=== PATIENT | female | born 1975 | race Caucasian/White ===

== ENCOUNTER 2018-04-05 02:17 | Emergency (ER) | payer MEDICAID, OTHER ==
[~2018-04-05] VITALS: Ht 177.8 cm; Wt 50.0 kg
[~2018-04-05 02:17] MED LIST: Z.0.NO CURRENT MEDS
[2018-04-05 02:27] VITALS: BP 137/84; PULSE 100; RESP 24; TEMP 98.2; O2SAT 100
[2018-04-05] MEDS ORDERED: VIST25CA PO (02:32)
[2018-04-05] MEDS ORDERED: PROZ40CA PO (02:32)
[2018-04-05 02:38] VITALS: BP 144/74; PULSE 101; RESP 26; O2SAT 100
--- NOTE | 2018-04-05 02:42 | PD ---
HPI Chief Complaint: GI Complaint Time Seen by Provider: 02:42 Travel History International Travel<30 days: No Contact w/Intl Traveler<30days: No Traveled to known affect area: No History of Present Illness HPI 42-year-old female with polysubstance abuse history presents to the emergency department by EMS transport for complaint of withdrawal symptoms. Patient recently was released from a one-week program at [facility] in [place] for methadone detox. Patient was released at 4 PM yesterday Monday. Patient states that she feels anxious with spasms in her hands and feet and presents with tachypnea and hyperventilation. Patient states that she decided she needed to come to the hospital or go to [facility]. Patient decided to come to the hospital. Patient does not voice any other concerns or complaints at this time and she is focused on getting medication for her symptoms. Patient denies other concerns or complaints at this time. Last time patient was seen in this system was for similar complaint May 2012. Denies homicidal or suicidal ideation PFSH Past Medical History Narrative Medical Depression tobacco use alcohol use drug abuse; nursing notes reviewed Depression: Yes ?: Not Past Surgical History Section: Yes (x2) Social History Alcohol Use: Yes (etoh abuse) Tobacco Use: Yes Substance Use: Yes (hx of drug abuse) Allergies-Medications (Allergen,Severity, Reaction): Coded Allergies: codeine (Unverified Allergy, Severe, 04/05/18) gabapentin (Verified Adverse Reaction, Unknown, 04/05/18) Reported Meds & Prescriptions Reported Meds & Active Scripts Active Zofran Odt (Ondansetron Odt) 4 Mg Tab 4 Mg SL Q6HR PRN Phenergan (Promethazine HCl) 25 Mg Tablet 25 Mg PO Q6H PRN Reported Vistaril (Hydroxyzine Pamoate) 25 Mg Cap 25 Mg PO Q6H PRN Prozac (Fluoxetine HCl) 40 Mg Cap 40 Mg PO DAILY Review of Systems Except as stated in HPI: all other systems reviewed are Neg General / Constitutional: No: Fever, Chills HENT: No: Congestion Cardiovascular: No: Chest Pain or Discomfort Respiratory: No: Shortness of Breath Gastrointestinal: Positive: Nausea, No: Vomiting, Abdominal Pain Genitourinary: No: Flank Pain Musculoskeletal: Positive: Cramping, No: Myalgias, Arthralgias Skin: No Rash (Bilateral hands and feet) Neurologic: No: Weakness, Dizziness, Syncope, Focal Abnormalities, Coordination Problem Psychiatric: Positive: Anxiety, No: Suicidal Ideations Endocrine: No: Heat Intolerance Hematologic/Lymphatic: No: Easy Bruising Physical Exam Narrative GENERAL: Well-developed well-nourished female crying and shaking and stating she needs something for her vomiting SKIN: Warm and dry. HEAD: Normocephalic. EYES: No scleral icterus. No injection or drainage. NECK: Supple, trachea midline. No JVD or lymphadenopathy. CARDIOVASCULAR: Increased regular rate and rhythm without murmurs, gallops, or rubs. RESPIRATORY: Breath sounds equal bilaterally. No accessory muscle use. GASTROINTESTINAL: Abdomen soft, non-tender, nondistended. MUSCULOSKELETAL: No cyanosis, or edema. BACK: Nontender without obvious deformity. No CVA tenderness. Data Data Last Documented VS Vital Signs Date Time Temp Pulse Resp B/P (MAP) Pulse Ox O2 Delivery O2 Flow Rate FiO2 04/05/18 05:01 101 24 141/86 (104) 97 Room Air 04/05/18 02:27 98.2 Orders Orders Complete Blood Count With Diff (04/05/18 02:42) Comprehensive Metabolic Panel (04/05/18 02:42) Thyroid Stimulating Hormone (04/05/18 02:42) Urinalysis - C+S If Indicated (04/05/18 02:42) Electrocardiogram (04/05/18 02:42) Iv Access Insert/Monitor (04/05/18 02:42) Psych Screen (04/05/18 02:42) Blood Glucose (04/05/18 02:42) Drug Screen, Random Urine (04/05/18 02:42) Alcohol (Ethanol) (04/05/18 02:42) Salicylates (Aspirin) (04/05/18 02:42) Tylenol (Acetaminophen) (04/05/18 02:42) Sodium Chlor 0.9% 1000 Ml Inj (Ns 1000 M (04/05/18 02:45) Metoclopramide Inj (Reglan Inj) (04/05/18 02:45) Magnesium (Mg) (04/05/18 02:42) Ed Urine Pregnancytest Poc (04/05/18 02:42) Chest, Single Ap (04/05/18 ) Blood Culture (04/05/18 03:46) Sodium Chlor 0.9% 1000 Ml Inj (Ns 1000 M (04/05/18 04:00) Lactic Acid Sepsis Protocol (04/05/18 03:46) Diphenhydramine Inj (Benadryl Inj) (04/05/18 05:00) Ondansetron Odt (Zofran Odt) (04/05/18 05:45) Lorazepam Inj (Ativan Inj) (04/05/18 05:45) Promethazine Inj (Phenergan Inj) (04/05/18 06:30) Labs Laboratory Tests Test 04/05/18 02:58 04/05/18 04:46 White Blood Count 15.7 TH/MM3 Red Blood Count 4.83 MIL/MM3 Hemoglobin 14.2 GM/DL Hematocrit 39.7 % Mean Corpuscular Volume 82.1 FL Mean Corpuscular Hemoglobin 29.4 PG Mean Corpuscular Hemoglobin Concent 35.8 % Red Cell Distribution Width 13.8 % Platelet Count 240 TH/MM3 Mean Platelet Volume 9.6 FL Neutrophils (%) (Auto) 73.9 % Lymphocytes (%) (Auto) 20.2 % Monocytes (%) (Auto) 5.4 % Eosinophils (%) (Auto) 0.2 % Basophils (%) (Auto) 0.3 % Neutrophils # (Auto) 11.6 TH/MM3 Lymphocytes # (Auto) 3.2 TH/MM3 Monocytes # (Auto) 0.9 TH/MM3 Eosinophils # (Auto) 0.0 TH/MM3 Basophils # (Auto) 0.1 TH/MM3 CBC Comment DIFF FINAL Differential Comment Blood Urea Nitrogen 8 MG/DL Creatinine 0.90 MG/DL Random Glucose 127 MG/DL Total Protein 8.2 GM/DL Albumin 4.4 GM/DL Calcium Level 9.4 MG/DL Magnesium Level 1.9 MG/DL Alkaline Phosphatase 49 U/L Aspartate Amino Transf (AST/SGOT) 13 U/L Alanine Aminotransferase (ALT/SGPT) 17 U/L Total Bilirubin 0.7 MG/DL Sodium Level 139 MEQ/L Potassium Level 3.7 MEQ/L Chloride Level 105 MEQ/L Carbon Dioxide Level 20.1 MEQ/L Anion Gap 14 MEQ/L Estimat Glomerular Filtration Rate 69 ML/MIN Thyroid Stimulating Hormone 3rd Gen 1.850 uIU/ML Salicylates Level 1.9 MG/DL Acetaminophen Level LESS THAN 2.0 MCG/ML Ethyl Alcohol Level LESS THAN 3 MG/DL Urine Color YELLOW Urine Turbidity HAZY Urine pH 8.5 Urine Specific [place] 1.015 Urine Protein NEG mg/dL Urine Glucose (UA) NEG mg/dL Urine Ketones 40 mg/dL Urine Occult Blood NEG Urine Nitrite NEG Urine Bilirubin NEG Urine Urobilinogen LESS THAN 2.0 MG/DL Urine Leukocyte Esterase NEG Urine WBC 7 /hpf Urine Squamous Epithelial Cells <1 /hpf Urine Amorphous Sediment OCC Urine Mucus FEW /lpf Microscopic Urinalysis Comment CULT NOT INDICATED Lactic Acid Level 1.3 mmol/L Urine Opiates Screen NEG Urine Barbiturates Screen NEG Urine Amphetamines Screen NEG Urine Benzodiazepines Screen NEG Urine Cocaine Screen NEG Urine Cannabinoids Screen POS MDM Medical Decision Making Medical Screen Exam Complete: Yes Emergency Medical Condition: Yes Medical Record Reviewed: Yes Interpretation(s) EKG sinus rhythm rate 85 first-degree AV block no acute ST elevation or injury pattern cxr: FINDINGS: A single AP view of the chest demonstrates the lungs to be symmetrically aerated without evidence of mass, infiltrate or effusion. The cardiomediastinal contours are unremarkable. Osseous structures are intact. CONCLUSION: Electronically signed by: Yvan Barnard MD 04/05/2018 4:14 AM EDT lactic acid: 1.3, not elevated CBC & BMP Diagram 04/05/18 02:58 Total Protein 8.2, Albumin 4.4, Calcium Level 9.4, Magnesium Level 1.9, Alkaline Phosphatase 49, Aspartate Amino Transf (AST/SGOT) 13 L, Alanine Aminotransferase (ALT/SGPT) 17, Total Bilirubin 0.7 tsh: 1.850, wnl Urine drug screen is positive for cannabinoids Urinalysis blood cells otherwise culture not indicated Acetaminophen and salicylate levels are not elevated Differential Diagnosis Polysubstance abuse, polysubstance withdrawal, anxiety, electrolyte disturbance , sepsis Narrative Course IV access obtained specimens collected and sent for resulting Patient's total white cell count is elevated at 15,000 patient identified to have bicarb 20.1; patient HR >90 and RR >22; acetaminophen and aspirin levels are not elevated call is less than 3 @ 3:52 AM UA, UDS, CXR, Lactic acid pending; patient ordered additional liter of normal saline At 5:35 AM lab values are resulted and patient is stable for outpatient management she will be referred to [facility] for ongoing inpatient or outpatient detox program At 6:17 AM patient reports she feels medically improved still some mild nausea tolerates Phenergan and responds well to Phenergan requesting an injection of Phenergan prior to being discharged is participating in a rehab program and has paid for the rehab program but would benefit from prescription for Zofran. Denies suicidal or homicidal ideation. Sepsis Criteria SIRS Criteria (2 or more): Heart rate over 90, RR > 20 or PaCO2 < 32, WBC > 53096, < 4000 or > 10% bands Diagnosis Primary Impression: Substance abuse Additional Impression: Vomiting Additional Instructions: Increase fluid hydration Take Phenergan as prescribed as needed for nausea and/or vomiting may take Zofran as needed for breakthrough nausea and/or vomiting Follow-up with your rehab program as planned Return to the emergency department for any concerns or change in condition May go to [facility] for alternative resources for detox and rehab program Med/Other Pt SpecificInfo: Prescription(s) given Scripts Ondansetron Odt (Zofran Odt) 4 Mg Tab 4 MG SL Q6HR Y for Nausea/Vomiting, #5 TAB 0 Refills Prov: Camila Bashir MD 04/05/18 Promethazine (Phenergan) 25 Mg Tablet 25 MG PO Q6H Y for NAUSEA OR VOMITING, #10 TAB 0 Refills Prov: Camila Bashir MD 04/05/18 Disposition: 01 DISCHARGE HOME Condition: Stable Camila Bashir MD Apr 05, 2018 02:42
[2018-04-05] MEDS ORDERED: SODIUM CHLOR 0.9% 1000 ML INJ 1,000 ML IV ONE ×2 (02:45→04:00)
[2018-04-05] MEDS ORDERED: METOCLOPRAMIDE HCL 10 MG/2 ML VIAL IV PUSH ONE (02:45)
[2018-04-05 03:09] LABS: AUTOMATED NEUTROPHIL # 11.6 TH/MM3 (1.8-7.7); BASOPHIL # 0.1 TH/MM3 (0-0.2); BASOPHIL % 0.3 % (0.0-2.0); EOSINOPHIL % 0.2 % (0.0-4.0); HEMATOCRIT 39.7 % (35.0-46.0); HEMOGLOBIN 14.2 GM/DL (11.6-15.3); LYMPH % 20.2 % (9.0-44.0); LYMPHOCYTE # 3.2 TH/MM3 (1.0-4.8); MEAN CELL VOLUME 82.1 FL (80.0-100.0); MEAN CORPUSCULAR HEMOGLOBIN 29.4 PG (27.0-34.0); MEAN CORPUSCULAR HGB CONC 35.8 % (32.0-36.0); MEAN PLATELET VOLUME 9.6 FL (7.0-11.0); MONO % 5.4 % (0.0-8.0); MONOCYTE # 0.9 TH/MM3 (0-0.9); NEUT % 73.9 % (16.0-70.0); PLATELET COUNT 240 TH/MM3 (150-450); RED BLOOD COUNT 4.83 MIL/MM3 (4.00-5.30); RED CELL DISTRIBUTION WIDTH 13.8 % (11.6-17.2); WHITE BLOOD COUNT 15.7 TH/MM3 (4.0-11.0)
[2018-04-05 03:37] LABS: ACETAMINOPHEN LESS THAN 2.0 MCG/ML (10.0-30.0); ALBUMIN 4.4 GM/DL (3.4-5.0); ALKALINE PHOSPHATASE 49 U/L (45-117); ALT (GPT) 17 U/L (10-53); AST (GOT) 13 U/L (15-37); BICARBONATE 20.1 MEQ/L (21.0-32.0); BLOOD UREA NITROGEN 8 MG/DL (7-18); CALCIUM 9.4 MG/DL (8.5-10.1); CHLORIDE 105 MEQ/L (98-107); GLOMERULAR FILTRATION RATE 69 ML/MIN (>89); GLUCOSE,RANDOM 127 MG/DL (74-106); MAGNESIUM 1.9 MG/DL (1.5-2.5); SODIUM (NA) 139 MEQ/L (136-145); TOTAL BILIRUBIN ADULT 0.7 MG/DL (0.2-1.0); TOTAL PROTEIN 8.2 GM/DL (6.4-8.2)
--- NOTE | 2018-04-05 04:15 | RADRPT ---
EXAM DATE: 04/05/2018 4:12 AM EDT AGE/SEX: 42 years / Female INDICATIONS: Short of breath. CLINICAL DATA: This is the patient's initial encounter. Patient reports that signs and symptoms have been present for 1 day and indicates a pain score of 0/10. MEDICAL/SURGICAL HISTORY: None. None. COMPARISON: No prior exams available for comparison. FINDINGS: A single AP view of the chest demonstrates the lungs to be symmetrically aerated without evidence of mass, infiltrate or effusion. The cardiomediastinal contours are unremarkable. Osseous structures a re intact. CONCLUSION: Electronically signed by: Yvan Barnard MD 04/05/2018 4:14 AM EDT
[2018-04-05] MEDS ORDERED: diphenhydrAMINE HCL 50 MG/ML VIAL IV PUSH ONE (05:00)
[2018-04-05 05:01] VITALS: BP 141/86; PULSE 101; RESP 24; O2SAT 97
[2018-04-05 05:25] LABS: AMORPHOUS SEDIMENT, URINE OCC; BILIRUBIN, URINE NEG (NEG); BLOOD, URINE NEG (NEG); GLUCOSE,URINE NEG (NEG); KETONE, URINE 40 mg/dL (NEG); MUCUS URINE FEW /lpf (OCC); NITRITE,URINE NEG (NEG); PH, URINE 8.5 (5.0-8.5); SQUAMOUS EPITHELIAL CELL URINE <1 /hpf (0-5); URINE COLOR YELLOW (YELLW/STRAW); URINE LEUKOCYTE ESTERASE NEG (NEG)
[2018-04-05] MEDS ORDERED: ONDANSETRON ODT 4 MG TAB PO ONE (05:45)
[2018-04-05] MEDS ORDERED: LORazepam 2 MG/ML VIAL IV PUSH ONE (05:45)
[2018-04-05] MEDS ORDERED: PROMETHAZINE INJ 25 MG/ML VIAL IM ONE (06:30)
[2018-04-05] MEDS ORDERED: ZOFR4TAB3 SL (06:31)
[2018-04-05] MEDS ORDERED: PROM25TA10 PO (06:31)
[2018-04-05 07:01] VITALS: BP 136/69; PULSE 88; RESP 19; TEMP 98.2; O2SAT 99
--- NOTE | 2018-04-05 11:24 | PD ---
History of Present Illness Chief Complaint: GI Complaint Time Seen by Provider: 11:15 Travel History International Travel<30 Days: No Contact w/Intl Traveler<30days: No Known affected area: No Legal Status Legal Status: Voluntary History of Present Illness: History of Present Illness HPI 42-year-old female with polysubstance abuse history, mostly opiate abuse, depression, who presents to the emergency department by EMS transport for complaint of withdrawal symptoms. Patient was released from a one-week program at [facility] for methadone detox yesterday. Patient states that she feels anxious with spasms in her hands and feet and presents with tachypnea and hyperventilation. Patient states that she decided she needed to come to the hospital [facility]. Patient decided to come to the hospital. Patient does not voice any other concerns or complaints at this time and she is focused on getting medication for her symptoms. Patient denies other concerns or complaints at this time. Last time patient was seen in this system was for similar complaint May 2012. Denies homicidal or suicidal ideation. A psychiatric evaluation was requested in order to assist with disposition. EMR reviewed. The patient was last evaluated in 2011 when she presented to the hospital requesting treatment for her opiate abuse. Patient seen. Jerzy, regional marketing manager present. The patient is alert, oriented, engaging and cooperative. She has anxiety. She has reports that she is coming off methadone and has been having some withdrawal symptoms. There is no evidence of any psychosis, no kiki, no hypomania. No suicidal or homicidal ideation. Patient's mood is anxious at the present time. She is currently on Prozac for treatment of her depression and reports medication compliance. Remainder of psychiatric review of system is negative. [facility] Past Medical History Depression: Yes Hepatitis: Yes (Hepatitis C) ?: Not Past Surgical History Section: Yes (x2) Psychiatric History Psychiatric History Hx Psychiatric Treatment: Reports received tretament for depression since a teenager. Currently on Prozac. Sees Dr. BOOTH and has appointment next week. Has been seeing him x 3 months. No previous suiced attempts. History of Inpatient Treatment: No Guns or firearms in home: No Social History . Currently at [place]. 13 year old daughter and 10 year old son. 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 [employer] Hx Alcohol Use: Yes (etoh abuse) Hx Tobacco Use: Yes Hx Substance Use: Yes (hx of drug abuse) Substance Use Type: Synth Opiates-Pain Pills Hx of Substance Use Treatment: Yes (Opiate abuse x 7 years.) Family Psychiatric History Negative Allergies-Medications (Allergen,Severity, Reaction): Coded Allergies: codeine (Unverified Allergy, Severe, 04/05/18) gabapentin (Verified Adverse Reaction, Unknown, 04/05/18) Reported Meds & Prescriptions Reported Meds & Active Scripts Active Zofran Odt (Ondansetron Odt) 4 Mg Tab 4 Mg SL Q6HR PRN Phenergan (Promethazine HCl) 25 Mg Tablet 25 Mg PO Q6H PRN Reported Vistaril (Hydroxyzine Pamoate) 25 Mg Cap 25 Mg PO Q6H PRN Prozac (Fluoxetine HCl) 40 Mg Cap 40 Mg PO DAILY Review of Systems Constitutional: COMPLAINS OF: Dizziness Eyes: COMPLAINS OF: Blurred vision Psychiatric: COMPLAINS OF: Anxiety, Depression Mental Status Examination Appearance: Appropriate Consciousness: Alert Orientation: x4 Motor Activity: Normal gait Speech: Stuttering (sl) Language: Adequate Fund of Knowledge: Adequate Attention and Concentration: Adequate Memory: Unremarkable Mood: Appropriate Affect: Appropriate Thought Process & Associations: Intact, Logical, Goal directed Thought Content: Appropriate Hallucination Type: None Delusion Type: None Suicidal Ideation: No Suicidal Plan: No Suicidal Intention: No Homicidal Ideation: No Homicidal Plan: No Homicidal Intention: No Insight: Adequate Judgment: Adequate [facility] Medical Decision Making Medical Record Reviewed: Yes Assessment/Plan History of Present Illness HPI 42-year-old female with polysubstance abuse history, mostly opiate abuse, depression, who presents to the emergency department by EMS transport for complaint of withdrawal symptoms. Patient was released from a one-week program at [facility] for methadone detox yesterday. Patient states that she feels anxious with spasms in her hands and feet and presents with tachypnea and hyperventilation. Patient states that she decided she needed to come to the hospital or go to the [facility]. Patient decided to come to the hospital. Patient does not voice any other concerns or complaints at this time and she is focused on getting medication for her symptoms. Patient denies other concerns or complaints at this time. Pt does not meet criteria for psychiatric admission. She does not feel that her current symptomatology is related to her depression but rather to her coming off the methadone. She has follow up with outpatient psychiatrist and plans on following up with him. Patient is instructed to return to the emergency room if any changes in her condition and this is a part of a general safety plan. Psychiatrically clear for discharge from the emergency department Orders Orders Complete Blood Count With Diff (04/05/18 02:42) Comprehensive Metabolic Panel (04/05/18 02:42) Thyroid Stimulating Hormone (04/05/18 02:42) Urinalysis - C+S If Indicated (04/05/18 02:42) Electrocardiogram (04/05/18 02:42) Iv Access Insert/Monitor (04/05/18 02:42) Psych Screen (04/05/18 02:42) Blood Glucose (04/05/18 02:42) Drug Screen, Random Urine (04/05/18 02:42) Alcohol (Ethanol) (04/05/18 02:42) Salicylates (Aspirin) (04/05/18 02:42) Tylenol (Acetaminophen) (04/05/18 02:42) Sodium Chlor 0.9% 1000 Ml Inj (Ns 1000 M (04/05/18 02:45) Metoclopramide Inj (Reglan Inj) (04/05/18 02:45) Magnesium (Mg) (04/05/18 02:42) Ed Urine Pregnancytest Poc (04/05/18 02:42) Chest, Single Ap (04/05/18 ) Blood Culture (04/05/18 03:46) Sodium Chlor 0.9% 1000 Ml Inj (Ns 1000 M (04/05/18 04:00) Lactic Acid Sepsis Protocol (04/05/18 03:46) Diphenhydramine Inj (Benadryl Inj) (04/05/18 05:00) Ondansetron Odt (Zofran Odt) (04/05/18 05:45) Lorazepam Inj (Ativan Inj) (04/05/18 05:45) Promethazine Inj (Phenergan Inj) (04/05/18 06:30) Results Vital Signs Date Time Temp Pulse Resp B/P (MAP) Pulse Ox O2 Delivery O2 Flow Rate FiO2 04/05/18 07:01 98.2 88 19 136/69 (91) 99 Room Air 04/05/18 05:01 101 24 141/86 (104) 97 Room Air 04/05/18 02:38 101 26 144/74 (97) 100 04/05/18 02:27 98.2 100 24 137/84 (101) 100 Laboratory Tests Test 04/05/18 02:58 04/05/18 04:46 White Blood Count 15.7 Red Blood Count 4.83 Hemoglobin 14.2 Hematocrit 39.7 Mean Corpuscular Volume 82.1 Mean Corpuscular Hemoglobin 29.4 Mean Corpuscular Hemoglobin Concent 35.8 Red Cell Distribution Width 13.8 Platelet Count 240 Mean Platelet Volume 9.6 Neutrophils (%) (Auto) 73.9 Lymphocytes (%) (Auto) 20.2 Monocytes (%) (Auto) 5.4 Eosinophils (%) (Auto) 0.2 Basophils (%) (Auto) 0.3 Neutrophils # (Auto) 11.6 Lymphocytes # (Auto) 3.2 Monocytes # (Auto) 0.9 Eosinophils # (Auto) 0.0 Basophils # (Auto) 0.1 CBC Comment DIFF FINAL Differential Comment Blood Urea Nitrogen 8 Creatinine 0.90 Random Glucose 127 Total Protein 8.2 Albumin 4.4 Calcium Level 9.4 Magnesium Level 1.9 Alkaline Phosphatase 49 Aspartate Amino Transf (AST/SGOT) 13 Alanine Aminotransferase (ALT/SGPT) 17 Total Bilirubin 0.7 Sodium Level 139 Potassium Level 3.7 Chloride Level 105 Carbon Dioxide Level 20.1 Anion Gap 14 Estimat Glomerular Filtration Rate 69 Thyroid Stimulating Hormone 3rd Gen 1.850 Salicylates Level 1.9 Acetaminophen Level LESS THAN 2.0 Ethyl Alcohol Level LESS THAN 3 Urine Color YELLOW Urine Turbidity HAZY Urine pH 8.5 Urine Specific [place] 1.015 Urine Protein NEG Urine Glucose (UA) NEG Urine Ketones 40 Urine Occult Blood NEG Urine Nitrite NEG Urine Bilirubin NEG Urine Urobilinogen LESS THAN 2.0 Urine Leukocyte Esterase NEG Urine WBC 7 Urine Squamous Epithelial Cells <1 Urine Amorphous Sediment OCC Urine Mucus FEW Microscopic Urinalysis Comment CULT NOT INDICATED Lactic Acid Level 1.3 Urine Opiates Screen NEG Urine Barbiturates Screen NEG Urine Amphetamines Screen NEG Urine Benzodiazepines Screen NEG Urine Cocaine Screen NEG Urine Cannabinoids Screen POS Date/Time Source Procedure Growth Status 04/05/18 04:51 Blood Peripheral Aerobic Blood Culture Pending Received 04/05/18 04:51 Blood Peripheral Anaerobic Blood Culture Pending Received Diagnosis Primary Impression: Substance abuse Additional Impression: Long-term current use of methadone for opiate dependence Psychiatrically Cleared: Yes Additional Instructions: Increase fluid hydration Take Phenergan as prescribed as needed for nausea and/or vomiting may take Zofran as needed for breakthrough nausea and/or vomiting Follow-up with your rehab program as planned Return to the emergency department for any concerns or change in condition May go to [facility] alternative resources for detox and rehab program Med/ Other Pt Specific Info: No Change to Meds Prescriptions Ondansetron Odt (Zofran Odt) 4 Mg Tab 4 MG SL Q6HR Y for Nausea/Vomiting, #5 TAB 0 Refills Prov: Camila Bashir MD 04/05/18 Promethazine (Phenergan) 25 Mg Tablet 25 MG PO Q6H Y for NAUSEA OR VOMITING, #10 TAB 0 Refills Prov: Camila Bashir MD 04/05/18 Disposition: 01 DISCHARGE HOME Condition: Stable Problem Qualifiers Kanwal [place] Apr 05, 2018 11:24
--- NOTE | 2018-04-05 11:28 | PD ---
Data Data Last Documented VS Vital Signs Date Time Temp Pulse Resp B/P (MAP) Pulse Ox O2 Delivery O2 Flow Rate FiO2 04/05/18 07:01 98.2 88 19 136/69 (91) 99 Room Air Orders Orders Complete Blood Count With Diff (04/05/18 02:42) Comprehensive Metabolic Panel (04/05/18 02:42) Thyroid Stimulating Hormone (04/05/18 02:42) Urinalysis - C+S If Indicated (04/05/18 02:42) Electrocardiogram (04/05/18 02:42) Iv Access Insert/Monitor (04/05/18 02:42) Psych Screen (04/05/18 02:42) Blood Glucose (04/05/18 02:42) Drug Screen, Random Urine (04/05/18 02:42) Alcohol (Ethanol) (04/05/18 02:42) Salicylates (Aspirin) (04/05/18 02:42) Tylenol (Acetaminophen) (04/05/18 02:42) Sodium Chlor 0.9% 1000 Ml Inj (Ns 1000 M (04/05/18 02:45) Metoclopramide Inj (Reglan Inj) (04/05/18 02:45) Magnesium (Mg) (04/05/18 02:42) Ed Urine Pregnancytest Poc (04/05/18 02:42) Chest, Single Ap (04/05/18 ) Blood Culture (04/05/18 03:46) Sodium Chlor 0.9% 1000 Ml Inj (Ns 1000 M (04/05/18 04:00) Lactic Acid Sepsis Protocol (04/05/18 03:46) Diphenhydramine Inj (Benadryl Inj) (04/05/18 05:00) Ondansetron Odt (Zofran Odt) (04/05/18 05:45) Lorazepam Inj (Ativan Inj) (04/05/18 05:45) Promethazine Inj (Phenergan Inj) (04/05/18 06:30) Labs Laboratory Tests Test 04/05/18 02:58 04/05/18 04:46 White Blood Count 15.7 TH/MM3 Red Blood Count 4.83 MIL/MM3 Hemoglobin 14.2 GM/DL Hematocrit 39.7 % Mean Corpuscular Volume 82.1 FL Mean Corpuscular Hemoglobin 29.4 PG Mean Corpuscular Hemoglobin Concent 35.8 % Red Cell Distribution Width 13.8 % Platelet Count 240 TH/MM3 Mean Platelet Volume 9.6 FL Neutrophils (%) (Auto) 73.9 % Lymphocytes (%) (Auto) 20.2 % Monocytes (%) (Auto) 5.4 % Eosinophils (%) (Auto) 0.2 % Basophils (%) (Auto) 0.3 % Neutrophils # (Auto) 11.6 TH/MM3 Lymphocytes # (Auto) 3.2 TH/MM3 Monocytes # (Auto) 0.9 TH/MM3 Eosinophils # (Auto) 0.0 TH/MM3 Basophils # (Auto) 0.1 TH/MM3 CBC Comment DIFF FINAL Differential Comment Blood Urea Nitrogen 8 MG/DL Creatinine 0.90 MG/DL Random Glucose 127 MG/DL Total Protein 8.2 GM/DL Albumin 4.4 GM/DL Calcium Level 9.4 MG/DL Magnesium Level 1.9 MG/DL Alkaline Phosphatase 49 U/L Aspartate Amino Transf (AST/SGOT) 13 U/L Alanine Aminotransferase (ALT/SGPT) 17 U/L Total Bilirubin 0.7 MG/DL Sodium Level 139 MEQ/L Potassium Level 3.7 MEQ/L Chloride Level 105 MEQ/L Carbon Dioxide Level 20.1 MEQ/L Anion Gap 14 MEQ/L Estimat Glomerular Filtration Rate 69 ML/MIN Thyroid Stimulating Hormone 3rd Gen 1.850 uIU/ML Salicylates Level 1.9 MG/DL Acetaminophen Level LESS THAN 2.0 MCG/ML Ethyl Alcohol Level LESS THAN 3 MG/DL Urine Color YELLOW Urine Turbidity HAZY Urine pH 8.5 Urine Specific [place] 1.015 Urine Protein NEG mg/dL Urine Glucose (UA) NEG mg/dL Urine Ketones 40 mg/dL Urine Occult Blood NEG Urine Nitrite NEG Urine Bilirubin NEG Urine Urobilinogen LESS THAN 2.0 MG/DL Urine Leukocyte Esterase NEG Urine WBC 7 /hpf Urine Squamous Epithelial Cells <1 /hpf Urine Amorphous Sediment OCC Urine Mucus FEW /lpf Microscopic Urinalysis Comment CULT NOT INDICATED Lactic Acid Level 1.3 mmol/L Urine Opiates Screen NEG Urine Barbiturates Screen NEG Urine Amphetamines Screen NEG Urine Benzodiazepines Screen NEG Urine Cocaine Screen NEG Urine Cannabinoids Screen POS MDM Supervised Visit with ARCAELI: No Narrative Course Case is checked out to me by Dr. Bashir pending psychiatric evaluation. Patient is asked for Motrin for chronic back discomfort. I discussed with the psychiatric provider. They do not find any acute psychiatric issues. They recommend outpatient follow-up. Stable for discharge from ER Diagnosis Primary Impression: Substance abuse Additional Impression: Vomiting Additional Instruction: Increase fluid hydration Take Phenergan as prescribed as needed for nausea and/or vomiting may take Zofran as needed for breakthrough nausea and/or vomiting Follow-up with your rehab program as planned Return to the emergency department for any concerns or change in condition May go to [facility] for alternative resources for detox and rehab program Scripts Ondansetron Odt (Zofran Odt) 4 Mg Tab 4 MG SL Q6HR Y for Nausea/Vomiting, #5 TAB 0 Refills Prov: Camlia Bashir MD 04/05/18 Promethazine (Phenergan) 25 Mg Tablet 25 MG PO Q6H Y for NAUSEA OR VOMITING, #10 TAB 0 Refills Prov: Camila Bashir MD 04/05/18 Disposition: 01 DISCHARGE HOME Condition: Stable Karl Alicia MD Apr 05, 2018 11:27
[2018-04-05 12:27] VITALS: BP 127/68; PULSE 82; RESP 19; O2SAT 99
--- NOTE | 2018-04-05 15:12 | EKG ---
Date Performed: 04/05/2018 Time Performed: 04:02:15 PTAGE: 42 years EKG: Sinus rhythm WITH SINUS ARRHYTHMIA WITH FIRST DEGREE AV BLOCK POSSIBLE LEFT ATRIAL ENLARGEMENT ABNORMAL ECG NO PREVIOUS TRACING DOCTOR: Francesca Jang Interpretating Date/Time 04/05/2018 15:11:40
== END 2018-04-05 12:28 | disposition home or self-care (01) ==
LOC: NEPC 02:17
DX: F12.10 Cannabis abuse, uncomplicated (principal); R11.10 Vomiting, unspecified; F11.20 Opioid dependence, uncomplicated; R06.82 Tachypnea, not elsewhere classified; I49.8 Other specified cardiac arrhythmias; I44.0 Atrioventricular block, first degree; R94.31 Abnormal electrocardiogram [ECG] [EKG]; R06.4 Hyperventilation; F32.9 Major depressive disorder, single episode, unspecified
CPT/HCPCS: 71045; 80053; 80307; 81001; 83605; 83735; 84443; 84703; 85025; 86403; 87040; 87077; 87186; 87205; 93005; 96361; 96372; 96374; 96375; 99285; J1200; J2060; J2550; J2765; J7030

== ENCOUNTER 2018-04-11 15:02 | Emergency (ER) | payer OTHER, MEDICAID ==
[~2018-04-11] VITALS: Ht 177.8 cm; Wt 49.6 kg
[~2018-04-11 15:02] MED LIST changes: +PROM25TA10 PO; +PROZ40CA PO; +VIST25CA PO; -Z.0.NO CURRENT MEDS; +ZOFR4TAB3 SL
[2018-04-11 15:07] VITALS: BP 160/93; PULSE 90; RESP 16; TEMP 98.5; O2SAT 96
--- NOTE | 2018-04-11 16:02 | PD ---
HPI Chief Complaint: Abnormal Results Time Seen by Provider: 15:27 Travel History International Travel<30 days: No Contact w/Intl Traveler<30days: No Traveled to known affect area: No History of Present Illness HPI 42yo F with IVDA was called back to the ED for positive blood cultures. Pt was seen on 04/05/18 for opioid withdrawal and had 2 sets of blood culture drawn. One set of blood culture grew micrococcus, staph coagulase negative and gram positive cocci pairs and clusters in aerobic bottle. No growth in anaerobic bottle. The other set of blood culture did not grow anything in both aerobic and anaerobic bottle. Pt denies any fever, chest pain, sob, n/v, abdominal pain , focal weakness or numbness. Admits to injecting methadone yesterday in her arm. Pt said she is actually hungry and would like something to eat. PFSH Past Medical History Anxiety: Yes Depression: Yes Diminished Hearing: No Hepatitis: Yes (Hepatitis C) Tetanus Vaccination: Unknown Influenza Vaccination: No ?: Not LMP: 04/10/18 Past Surgical History Section: Yes (x2) Social History Alcohol Use: Yes (etoh abuse) Tobacco Use: Yes Substance Use: Yes (hx of drug abuse) Allergies-Medications (Allergen,Severity, Reaction): Coded Allergies: codeine (Unverified Allergy, Severe, 04/11/18) gabapentin (Verified Adverse Reaction, Unknown, 04/11/18) Reported Meds & Prescriptions Reported Meds & Active Scripts Active Phenergan (Promethazine HCl) 25 Mg Tablet 25 Mg PO Q6H PRN Reported Vistaril (Hydroxyzine Pamoate) 25 Mg Cap 25 Mg PO Q6H PRN Prozac (Fluoxetine HCl) 40 Mg Cap 40 Mg PO DAILY Review of Systems Except as stated in HPI: all other systems reviewed are Neg Physical Exam Narrative GENERAL: 42yo F not in distress. SKIN: Focused skin assessment warm/dry. HEAD: Atraumatic. Normocephalic. EYES: Pupils equal and round. No scleral icterus. No injection or drainage. ENT: No nasal bleeding or discharge. Mucous membranes pink and moist. NECK: Trachea midline. No JVD. CARDIOVASCULAR: Regular rate and rhythm. No murmur appreciated. RESPIRATORY: No accessory muscle use. Clear to auscultation. Breath sounds equal bilaterally. GASTROINTESTINAL: Abdomen soft, non-tender, nondistended. MUSCULOSKELETAL: +Scars in bilateral wrist with no erythema, discharge or edema. No obvious deformities. No clubbing. No cyanosis. No edema. NEUROLOGICAL: Awake and alert. No obvious cranial nerve deficits. Motor grossly within normal limits. Normal speech. PSYCHIATRIC: Appropriate mood and affect; insight and judgment normal. Data Data Last Documented VS Vital Signs Date Time Temp Pulse Resp B/P (MAP) Pulse Ox O2 Delivery O2 Flow Rate FiO2 04/11/18 15:07 98.5 90 16 160/93 (115) 96 Orders Orders Blood Culture (04/11/18 15:43) Ed Discharge Order (04/11/18 16:38) MDM Medical Decision Making Medical Screen Exam Complete: Yes Emergency Medical Condition: Yes Differential Diagnosis Positive blood culture likely contamination Narrative Course 42yo F was called back for positive blood culture drawn on 04/05/18. I discussed case with Dr. Ocampo from infectious disease and he recommends repeating 2 sets of blood cultures. He felt that pt has no fever and this is likely a contamination since only one set grew microorganisms. Pt is very well appearing and has no fever or actual complaints. She is hungry and given food. Dr. Ocampo said that blood work is not needed and pt does not need antibiotics. Return precautions given. Diagnosis Primary Impression: Positive blood culture Patient Instructions: General Instructions Departure Forms: Tests/Procedures Additional Instructions: Please follow up with your primary care physician. Please refrain from using IV drugs. Return to the ED if symptoms worsen or you develop fever. Med/Other Pt SpecificInfo: No Change to Meds Disposition: 01 DISCHARGE HOME Condition: Stable Lorenza Ott Apr 11, 2018 16:02
== END 2018-04-11 17:21 | disposition home or self-care (01) ==
LOC: PHED 15:02
DX: R78.81 Bacteremia (principal); F41.9 Anxiety disorder, unspecified; F32.9 Major depressive disorder, single episode, unspecified; Z88.5 Allergy status to narcotic agent; Z88.8 Allergy status to other drugs, medicaments and biological substances; Z79.899 Other long term (current) drug therapy; Z72.0 Tobacco use; Z86.19 Personal history of other infectious and parasitic diseases
CPT/HCPCS: 87040; 99283